=== PATIENT | male | born 1955 | race Caucasian/White ===

== ENCOUNTER 2020-09-23 08:38 | Outpatient (REF) | payer BC, SELFPAY ==
[2020-09-23 09:34] LABS: MANUAL DIFF FLAG NO
[2020-09-23 09:36] LABS: Basophils Absolute Auto 0.1 X10*3/uL (0.0-0.2); Basophils Percent Auto 0.9 % (0-2); Eosinophils Absolute Auto 0.3 X10*3/uL (0.0-0.4); Eosinophils Percent Auto 4.6 % (0-4); Hematocrit 46.1 % (42-52); Hemoglobin 15.4 g/dl (14.0-18.0); Imm Gran Abs Auto 0.01 X10*3/uL (0.00-0.03); Imm Gran Pct Auto 0.2 % (0.0-0.4); Lymphocytes Absolute Auto 1.5 X10*3/uL (1.2-4.9); Lymphocytes Percent Auto 26.1 % (20-40); Mean Corpuscular HGB Conc 33.4 g/dl (31.0-36.0); Mean Corpuscular Hemoglobin 29.8 pg (27.0-33.0); Mean Corpuscular Volume 89.3 fL (80-98); Mean Platelet Volume 10.4 fL (9.4-12.4); Monocytes Absolute Auto 0.5 X10*3/uL (0.1-1.2); Monocytes Percent Auto 7.9 % (2-11); Neutrophils Absolute Auto 3.5 X10*3/uL (2.0-8.3); Neutrophils Percent Auto 60.3 % (45-73); Platelet Count 279 X10*3/uL (160-400); Red Blood Count 5.16 X10*6/uL (4.60-5.80); Red Cell Distribution Width 11.9 % (11.0-16.0); White Blood Count 5.8 X10*3/uL (4.8-10.8)
[2020-09-23 09:55] LABS: Alanine Aminotransferase 19 U/L (0-40); Albumin Level 4.3 g/dL (3.5-5.0); Alkaline Phosphatase 53 U/L (39-117); Anion Gap 12 (12-20); Aspartate Amino Transferase 15 U/L (5-37); Bilirubin Total 0.8 mg/dL (0.0-1.0); Blood Urea Nitrogen 13 mg/dL (9-16); Calcium 8.9 mg/dL (8.4-10.2); Carbon Dioxide 30 mmol/L (22-29); Chloride 104 mmol/L (96-108); Cholesterol 192 mg/dL; Estimated Glomerular Filt Rate > 60; Glucose Random 95 mg/dL (60-115); HDL Cholesterol 58 mg/dL; LDL Cholesterol Calculated 113 mg/dl; Potassium 4.5 mmol/l (3.3-5.1); Sodium 141 mmol/L (135-145); Total Protein 6.5 g/dL (6.5-8.0); Triglycerides 108 mg/dL
[2020-09-23 10:16] LABS: Prostate Specific Antigen 0.52 ng/mL (<0.05-4.0); Thyroid Stimulating Hormone 0.98 uIU/mL (0.32-4.0)
[2020-09-23 10:32] LABS: Vitamin B12 877 pg/mL (200-900)
[2020-09-23 11:50] LABS: Glucose Urine UA NEG (NEG); Leukocyte Esterase Urine NEG (NEG); Nitrite Urine NEG (NEG); Urine Blood NEG (NEG); Urine Ketones 5 MG/DL (NEG); Urine Protein NEG (NEG-TRACE)
[2020-09-23 12:00] LABS: Appearance Urine CLEAR; Color Urine YELLOW
[2020-09-24 16:56] LABS: Homocysteine 10.8 umol/L (<11.4)
[2020-09-27 19:23] LABS: Methylmalonic Acid 142 nmol/L (87-318)
== END 2020-09-23 08:39 | disposition home or self-care (01) ==
LOC: HO.HMGCLDS 08:38
PROVIDERS: PCP Internal Medicine; Visit Provider Internal Medicine
DX: R41.3 Other amnesia (principal); I10 Essential (primary) hypertension; E78.00 Pure hypercholesterolemia, unspecified; Z12.5 Encounter for screening for malignant neoplasm of prostate
CPT/HCPCS: 36415; 80053; 80061; 81003; 82607; 83090; 83921; 84153; 84443; 85025

== ENCOUNTER 2022-01-14 17:40 | Emergency (ER) | payer MEDICARE, SELFPAY ==
--- NOTE | ~2022-01-14 | XR_ITS ---
EXAMINATION: RIGHT KNEE, RIGHT ELBOW CLINICAL INFORMATION: Status post fall with right knee and right elbow pain COMPARISON: None TECHNIQUE: 3 views right elbow, 5 views right knee FINDINGS: Elbow: No bone joint or soft tissue abnormality is seen. Knee: Some minimal degenerative changes are present with a tiny osteophyte arising from the medial tibial plateau and some posterior patellar osteophytes. No joint effusion. Joint spaces do not appear significantly narrowed. XR/XR knee RT 4V IMPRESSION: No evidence of a traumatic injury status post fall.
--- NOTE | ~2022-01-14 | XR_ITS ---
EXAMINATION: RIGHT KNEE, RIGHT ELBOW CLINICAL INFORMATION: Status post fall with right knee and right elbow pain COMPARISON: None TECHNIQUE: 3 views right elbow, 5 views right knee FINDINGS: Elbow: No bone joint or soft tissue abnormality is seen. Knee: Some minimal degenerative changes are present with a tiny osteophyte arising from the medial tibial plateau and some posterior patellar osteophytes. No joint effusion. Joint spaces do not appear significantly narrowed. XR/XR elbow RT min 3V IMPRESSION: No evidence of a traumatic injury status post fall.
--- NOTE | 2022-01-14 19:14 | ED.FALL ---
HPI - Fall General Chief Complaint: Fall Stated Complaint: fall/chin INJ Time Seen by Provider: 01/14/22 19:14 Source: patient Mode of arrival: ambulatory Limitations: no limitations History of Present Illness HPI Narrative: 66 y/o male with history of early dementia presents to the ER for evaluation after a mechanical fall earlier today. Patient reports when he was going on his daily walk he lost his balance and fell forward on the sidewalk, hitting his right elbow, right knee and chin on the cement. He did not lose consciousness any is not on anticoagulation medication. He reports biting his lower lip and having bleeding at the time of fall. No dental trauma. He was able to get up on his own and has been ambulatory with only some scrapes on his knees. MD complaint: fall Onset (ago): hour(s) Fall from: standing Fall witnessed: no Place fall occurred: street Loss of consciousness: none Prolonged down time: no Symptoms prior to fall: none Context: tripped/slipped Location of injury: face Location of injury - extremities: right: elbow and knee Severity: mild Severity scale (1-10): 3 Quality: aching Associated symptoms (after fall): denies Related Data Allergies Allergy/AdvReac Type Severity Reaction Status Date / Time codeine [Codeine] Allergy Mild PASSES OUT Unverified 06/13/20 16:03 Review of Systems Review of Systems: Constitutional: No Fever, No Chills ENT/Mouth: No sore throat, No Rhinorrhea, No Swallowing Difficulty, +Lip trauma, No dental trauma Cardiovascular: No Chest Pain, No SOB Respiratory: No Cough, No Sputum Gastrointestinal: No Nausea, No Vomiting, No abdominal Pain Musculoskeletal: + joint pain, No Myalgias Skin: + Skin Lesions, No rash Neuro: No Weakness, No Numbness, No Dizziness, No Headache Psych: No Anxiety/Panic, No Depression Heme/Lymph: + Bruising, No Lymphadenopathy PMFSH Social History Social History Advance Directives: No Physical Exam Vital Signs: Vital Signs: Last Vital Signs Temp 97.9 F 01/14/22 19:25 Pulse 88 01/14/22 19:25 Resp 17 01/14/22 19:25 BP 155/86 H 01/14/22 19:25 Pulse Ox 98 01/14/22 19:25 BMI result Body Mass Index 34.7 Appearance: Alert. Oriented X3. No acute distress. HEENT: head is normocephalic without swelling or tenderness, normal inspection of the face, inner lower lip with a 1cm linear laceration and ecchymosis of the lip, no active bleeding, no dental trauma or malocclusion. the chin has a superficial <0.5cm laceration that does not appear to connect with the internal lip laceration. normal inpsection of the tonsils and uvula. TMs normal, no blood in EAC, no mastoid tenderness. Neck: Normal inspection. Neck supple. No midline tenderness, normal range of motion. CVS: Normal heart rate and rhythm. Pulses normal. Respiratory: No respiratory distress. Breath sounds normal. Abdomen: Soft and nontender. +BS x4 no ecchymosis. Skin: Skin warm and dry. Normal skin color. Normal skin turgor. Extremities: Bilateral knees with superfical abrasions, normal ROM, normal patellas, no joint laxity. right elbow with mild swelling, minimal tenderness, normal active and passive ROM. no ecchymosis, erythema or crepitus. NV intact distally. Neuro: Oriented X 3. No motor deficit. No sensory deficit. Steady gait Course Course Course Narrative: 66 y/o male with history of early dementia presents to the ER after mechanical fall earlier today. He has superficial abrasions to the bilateral knees and some mild swelling of the right elbow. X-rays are ordered. His lip laceration does not appear to be a through and through and the inner lip wound is already closed, will plan to Dermabond the outer laceration in the event it is a through and through. Reevaluation(s) Reevaluation #1: X-rays are unremarkable. Local wound care to the knees performed. Wound of the chin was well approximated with Dermabond. Wound care discussed with patient and his at the bedside. Stable for discharge home. Tdap given. Procedures Laceration Laceration 1: Site: lip Size (cm): 0.5 Description: linear Depth: [id number] Pre-repair: wound explored and irrigated extensively Skin layer closed with: other (dermabond) Critical Care Time Critical Care Time Critical Care Time: No Discharge Plan Discharge Clinical Impression: Complicated laceration of lip, Abrasion of knee, Contusion of elbow Patient Disposition: Home, Self-Care Instructions: Fall Prevention for Older Adults (ED), Abrasion (ED) Additional Instructions: Your x-rays today were normal. Use bacitracin 2 times per day to the knee. Dermabond was used to close the small laceration on your chin - this will come off on its own, do not peel it off. After eating for the next 2 days rinse your mouth with water Avoid spicy and acidic foods, foods with seeds and sharp pieces until the laceration on the inside of your lip is completely healed Follow up with your doctor as needed If you develop new or worsening symptoms call 911 or come back to the ER for further evaluation. Interventions: ED Discharge Assessment Last Done: 01/14/22 20:28 Discharge Date/Time: 01/14/22 20:30
[2022-01-14 19:20] VITALS: BP 155/86; PULSE 88; RESP 17; TEMP 36.6; O2SAT 98; BMI 34.7
[2022-01-14 19:25] VITALS: BP 155/86; PULSE 88; RESP 17; TEMP 36.6; O2SAT 98
[2022-01-14] MEDS: Diphth,Pertus(ACell),Tet Adult 0.5 ML SYRINGE IM (20:02)
== END 2022-01-14 20:30 | disposition home or self-care (01) ==
PROVIDERS: Emergency Provider Emergency Medicine Emergency Medical Services; PCP Internal Medicine
DX: S01.511A Laceration without foreign body of lip, initial encounter (principal); S80.212A Abrasion, left knee, initial encounter; S80.211A Abrasion, right knee, initial encounter; S50.01XA Contusion of right elbow, initial encounter; F03.90 Unspecified dementia, unspecified severity, without behavioral disturbance, psychotic disturbance, mood disturbance, and anxiety; W01.0XXA Fall on same level from slipping, tripping and stumbling without subsequent striking against object, initial encounter; Y93.9 Activity, unspecified; Y92.410 Unspecified street and highway as the place of occurrence of the external cause; Y99.9 Unspecified external cause status
CPT/HCPCS: 12011; 73080; 73564; 90471; 90715; 99283; 99284

== ENCOUNTER 2022-03-18 08:01 | Day surgery (SDC) | payer MEDICARE, SELFPAY ==
--- NOTE | 2022-03-17 08:28 | HO.ANESPROP2 ---
Documented by User: Rosa Rojas NP 03/17/22 08:29 HPI - Anesthesia Eval Consult details Narrative: 66yo M for Colonoscopy [facility] Past Medical History Medical History Enlarged prostate HTN (hypertension) Hyperlipidemia Lumbar herniated disc Mild dementia Surgical History Surgical History Hx of colonoscopy No pertinent past surgical history Social History Social History Patient Tobacco Use Status: Never used Tobacco Advance Directives: No Advance Directives Information Provided: Yes Nutrition Risks: No Nutritional Risk Meds Allergies Allergy/AdvReac Type Severity Reaction Status Date / Time codeine [Codeine] Allergy Mild PASSES OUT Unverified 03/11/22 13:52 Home Medications Medication Instructions Recorded Confirmed Last Taken Type cyanocobalamin (vitamin B-12) 1,000 mcg PO DAILY 03/11/22 03/11/22 Unknown History 1,000 mcg tablet (Vitamin B-12) donepezil 10 mg tablet 1 tab PO DAILY 03/11/22 03/11/22 Unknown History lisinopril 10 mg tablet 1 tab PO DAILY 03/11/22 03/11/22 Unknown History memantine 10 mg tablet 1 tab PO BID 03/11/22 03/11/22 Unknown History omeprazole 20 mg capsule,delayed 20 mg PO DAILY 03/11/22 03/11/22 Unknown History release simvastatin 20 mg tablet 1 tab PO BEDTIME 03/11/22 03/11/22 Unknown History Exam Exam Date and Time: March 17, 2022 0828 Assessment and Plan Assessment Anesthesia Assessment: Chart Reviewed Documented by User: Katja Green MD 03/18/22 09:46 [facility] Past Medical History Medical History Enlarged prostate HTN (hypertension) Hyperlipidemia Lumbar herniated disc Mild dementia Functional capacity: independent ambulation Family History Family history of problems with anesthesia: No Surgical History Surgical History Hx of colonoscopy No pertinent past surgical history History of Problems with Anesthesia: No Social History Social History Patient Tobacco Use Status: Never used Tobacco Advance Directives: No Advance Directives Information Provided: Yes Nutrition Risks: No Nutritional Risk Meds Allergies Allergy/AdvReac Type Severity Reaction Status Date / Time codeine [Codeine] Allergy Mild PASSES OUT Unverified 03/11/22 13:52 Home Medications Medication Instructions Recorded Confirmed Last Taken Type cyanocobalamin (vitamin B-12) 1,000 mcg PO DAILY 03/11/22 03/11/22 Unknown History 1,000 mcg tablet (Vitamin B-12) donepezil 10 mg tablet 1 tab PO DAILY 03/11/22 03/11/22 Unknown History lisinopril 10 mg tablet 1 tab PO DAILY 03/11/22 03/11/22 Unknown History memantine 10 mg tablet 1 tab PO BID 03/11/22 03/11/22 Unknown History omeprazole 20 mg capsule,delayed 20 mg PO DAILY 03/11/22 03/11/22 Unknown History release simvastatin 20 mg tablet 1 tab PO BEDTIME 03/11/22 03/11/22 Unknown History Exam Airway Mallampati Class: II TM Dist: >3cm Neck ROM: Full Heart: RRR Lungs: CTA Assessment and Plan Final Anesthetic Review Family History of Problems with Anesthesia: No History of Problems with Anesthesia: No ASA Class: II Final Preanesthetic Review: No Changes in Pt Med Stat, Meds/Allgs Chart Reviewed, Consent Obtained/Reviewed and Anes Risks/Benef Reviewed Patient Risk: Low Procedure Risk: Low Anesthetic Plan Anesthetic Plan: MAC: Disposition: Standard PACU
[2022-03-18 08:14] VITALS: BP 157/93; PULSE 89; RESP 16; O2SAT 96; BMI 34.3
--- NOTE | 2022-03-18 10:13 | PM.OP ---
Brief Operative Note Date of Service: 03/18/22 Pre-op diagnosis: Screening Post-op diagnosis: other (Polyps) Procedure: Colonoscopy to the cecum and TI with bx/removal of polyps Surgeon: Molina Salamanca Anesthesia: MAC Was an Accounts Payable Bookkeeper used for this Procedure?: No Estimated blood loss (mL): 2.0 Pathology: other (A. Rectal polyps) Condition: stable Disposition: PACU
[2022-03-18 10:15] VITALS: BP 89/53; PULSE 75; RESP 16; TEMP 36.6; O2SAT 96
[2022-03-18 10:30] VITALS: BP 118/64; PULSE 81; RESP 18; TEMP 36.6; O2SAT 98
--- NOTE | 2022-03-18 11:36 | HO.POSTANES ---
Post Anesthesia Evaluation Post Anesthesia Evaluation Vital Signs: Vital Signs Temp Pulse Resp BP Pulse Ox O2 Del Method 03/18/22 10:30 97.9 F 81 18 118/64 98 Room Air 03/18/22 10:15 97.9 F 75 16 89/53 L 96 Room Air 03/18/22 08:14 89 16 157/93 H 96 Room Air Anesthesia: Monitored Mental Status: Awake Pain Control: Satisfactory Nausea/Vomiting: None Hydration: Adequate Anesthesia-Related Issues: No Anes. Related Issues
--- NOTE | 2022-03-18 13:58 | OP_ITS ---
SURGEON: Molina Salamanca MD INDICATIONS: The patient presents for evaluation of colorectal cancer screening and personal history of tubular adenoma of the colon. Full consent has been obtained from him for this, including risks of bleeding and perforation. PREOPERATIVE DIAGNOSIS: POSTOPERATIVE DIAGNOSIS: PROCEDURE PERFORMED: Colonoscopy to the cecum and terminal ileum with biopsy and removal of polyps. ESTIMATED BLOOD LOSS: COMPLICATIONS: ANESTHESIA: Monitored anesthesia care. ASSISTANTS: SPECIMENS: PREOPERATIVE DIAGNOSES: Colorectal cancer screening, personal history of tubular adenoma of the colon, and family history of colon cancer. POSTOPERATIVE DIAGNOSES: Colorectal cancer screening, personal history of tubular adenoma of the colon, and family history of colon cancer, small rectal polyps, diverticulosis and internal hemorrhoids. DESCRIPTION OF PROCEDURE: The patient was placed in the left lateral decubitus position. The digital rectal exam revealed no abnormalities. The Olympus video pediatric colonoscope was entered into the rectum and advanced easily to the cecum. Once in the cecum, I did identify normal-appearing cecal pouch with appendiceal orifice and a normal-appearing ileocecal valve. The terminal ileum was cannulated and appeared normal. Scope was withdrawn back in the colon. The entire cecum and ileocecal valve appeared normal. The scope was slowly withdrawn assessing all mucosal surfaces carefully. Preparation was excellent. There was a mild amount of sigmoid diverticulosis. In the rectum were 2 flat less than 5 mm probable hyperplastic polyps, which were each biopsied and removed completely with cold biopsy forceps. There were other similar polyps in the distal sigmoid colon, which were not removed given their appearance. In the rectum, scope was retroflexed visualizing internal hemorrhoids, but no other pathology. The rectal mucosa appeared normal. The scope was straightened and withdrawn from the patient. He tolerated the procedure well and was returned to the recovery area in stable condition. IMPRESSION: 1. Small rectal polyp, status post biopsy removal. 2. Diverticulosis. 3. Internal hemorrhoids. PLAN: The results of biopsies will be checked. I would recommend a repeat colonoscopy in 5 years for further screening. He will otherwise see me on a p.r.n. basis. This has been discussed with his . MD GUTIERREZ Hernandes/ANGELICA / [id number]
== END 2022-03-18 11:00 | disposition home or self-care (01) ==
PROVIDERS: PCP Internal Medicine; Visit Provider Internal Medicine
PROC: 0DJD8ZZ Inspection of Lower Intestinal Tract, Via Natural or Artificial Opening Endoscopic (ICD-10-PCS; CPT 45378; principal; 2022-03-18 09:30)
DX: Z12.11 Encounter for screening for malignant neoplasm of colon (principal); Z86.010 Personal history of colon polyps; Z80.0 Family history of malignant neoplasm of digestive organs; K62.1 Rectal polyp; K57.30 Diverticulosis of large intestine without perforation or abscess without bleeding; K64.8 Other hemorrhoids; N40.0 Benign prostatic hyperplasia without lower urinary tract symptoms; I10 Essential (primary) hypertension; E78.5 Hyperlipidemia, unspecified; F03.90 Unspecified dementia, unspecified severity, without behavioral disturbance, psychotic disturbance, mood disturbance, and anxiety; Z79.899 Other long term (current) drug therapy
CPT/HCPCS: 45380; 88305

== ENCOUNTER 2023-05-12 09:58 | Outpatient (REF) | payer MEDICARE, SELFPAY ==
[2023-05-12 13:51] LABS: Prostate Specific Antigen 1.29 ng/mL (<0.05-4.0)
== END 2023-05-12 09:59 | disposition home or self-care (01) ==
LOC: HO.HMGCLDS 09:58
PROVIDERS: PCP Internal Medicine; Visit Provider Urology
DX: N40.1 Benign prostatic hyperplasia with lower urinary tract symptoms (principal); Z12.5 Encounter for screening for malignant neoplasm of prostate
CPT/HCPCS: 36415; 84153

== ENCOUNTER 2023-08-03 18:39 | Outpatient (REF) | payer MEDICARE, SELFPAY ==
--- NOTE | ~2023-08-03 | MR_ITS ---
EXAMINATION: MR BRAIN WITHOUT CONTRAST CLINICAL INFORMATION: Ataxia, memory loss COMPARISON: MRI brain 10/06/2019 TECHNIQUE: MRI of the brain was obtained using routine sequences without contrast. FINDINGS: Again seen is severe dilatation of the lateral and third ventricles with milder distention of the fourth ventricle. Overall, this appears comparable to the prior examination of 2019. There is narrowing of the callosal angle and sulcal crowding at the cerebral vertex. There is no reduced diffusion to suggest acute infarct. Susceptibility weighted sequence is within normal limits. No midline shift. Periventricular and subcortical T2/FLAIR hyperintense foci are nonspecific but likely represent chronic microvascular ischemic change. T2/FLAIR hyperintense signal in the region of the cerebral aqueduct may be related to pulsation/flow. Intracranial flow voids are preserved. Trace ethmoid air cell mucosal thickening. The mastoid air cells are well-aerated. No focal expansile/destructive osseous lesion. MR/MR head/brain wo con IMPRESSION: Redemonstrated severe ventriculomegaly, most prominently involving the lateral and third ventricles, compatible with communicating hydrocephalus. Overall, no significant change compared to the prior examination of 2019.
== END 2023-08-03 18:40 | disposition home or self-care (01) ==
LOC: HO.MRI 18:39
PROVIDERS: PCP Internal Medicine; Visit Provider Psychiatry & Neurology Neurology
DX: R26.0 Ataxic gait (principal); R41.3 Other amnesia
CPT/HCPCS: 70551

== ENCOUNTER 2023-08-20 13:08 | Outpatient (REF) | payer MEDICARE, SELFPAY ==
[2023-08-20 15:47] LABS: Prostate Specific Antigen 0.61 ng/mL (<0.05-4.0)
== END 2023-08-20 13:09 | disposition home or self-care (01) ==
LOC: HO.HMGCLDS 13:08
PROVIDERS: PCP Internal Medicine; Visit Provider Physician Assistant
DX: Z12.5 Encounter for screening for malignant neoplasm of prostate (principal); N40.1 Benign prostatic hyperplasia with lower urinary tract symptoms
CPT/HCPCS: 36415; 84153

== ENCOUNTER 2023-10-19 11:23 | Outpatient (REF) | payer MEDICARE, SELFPAY ==
[2023-10-19 14:46] LABS: Blood Urea Nitrogen 12 mg/dL (9-16); Estimated Glomerular Filt Rate > 60
== END 2023-10-19 11:24 | disposition home or self-care (01) ==
LOC: HO.HMGCLDS 11:23
PROVIDERS: PCP Internal Medicine; Visit Provider Physician Assistant
DX: R31.29 Other microscopic hematuria (principal)
CPT/HCPCS: 36415; 82565; 84520

== ENCOUNTER 2023-12-22 09:52 | Outpatient (REF) | payer MEDICARE, SELFPAY ==
[2023-12-22 13:17] LABS: MANUAL DIFF FLAG NO
[2023-12-22 13:47] LABS: Basophils Percent Auto 0.7 % (0-2); Eosinophils Absolute Auto 0.1 X10*3/uL (0.0-0.4); Eosinophils Percent Auto 2.8 % (0-4); Hematocrit 43.1 % (42.0-52.0); Hemoglobin 14.6 g/dl (14.0-18.0); Imm Gran Abs Auto 0.02 X10*3/uL (0.00-0.03); Imm Gran Pct Auto 0.4 % (0.0-0.4); Lymphocytes Absolute Auto 1.3 X10*3/uL (1.2-4.9); Lymphocytes Percent Auto 27.5 % (20-40); Mean Corpuscular HGB Conc 33.9 g/dl (31.0-36.0); Mean Corpuscular Hemoglobin 29.3 pg (27.0-33.0); Mean Corpuscular Volume 86.4 fL (80.0-98.0); Mean Platelet Volume 10.8 fL (9.4-12.4); Monocytes Absolute Auto 0.4 X10*3/uL (0.1-1.2); Monocytes Percent Auto 8.9 % (2-11); Neutrophils Absolute Auto 2.7 x10*3/uL (2.0-8.3); Neutrophils Percent Auto 59.7 % (45-73); Platelet Count 221 X10*3/uL (160-400); Red Blood Count 4.99 X10*6/uL (4.60-5.80); Red Cell Distribution Width 12.3 % (11.0-16.0); White Blood Count 4.6 X10*3/uL (4.8-10.8)
[2023-12-22 14:01] LABS: Estimated Average Glucose 105 mg/dL; Hemoglobin A1c % 5.3 % (<6.0)
[2023-12-22 14:12] LABS: Alanine Aminotransferase 22 U/L (0-40); Alkaline Phosphatase 61 U/L (39-117); Anion Gap 12 (12-20); Aspartate Amino Transferase 18 U/L (5-37); Blood Urea Nitrogen 15 mg/dL (9-16); Calcium 9.3 mg/dL (8.4-10.2); Carbon Dioxide 27 mmol/L (22-29); Chloride 104 mmol/L (96-108); Cholesterol 174 mg/dL (<200); Estimated Glomerular Filt Rate > 60; Glucose Random 91 mg/dL (60-115); HDL Cholesterol 52 mg/dL (>40); LDL Cholesterol Calculated 105 mg/dL (<100); Potassium 3.9 mmol/L (3.3-5.1); Sodium 139 mmol/L (135-145); Total Protein 6.6 g/dL (6.5-8.0); Triglycerides 86 mg/dL (<150)
[2023-12-22 14:31] LABS: TSH reflex Free T4 0.85 uIU/mL (0.32-4.0); Vitamin D 25-OH Total 37.6 ng/mL (>30)
== END 2023-12-22 09:53 | disposition home or self-care (01) ==
LOC: HO.HMGCLDS 09:52
PROVIDERS: PCP Internal Medicine; Visit Provider Internal Medicine
DX: E78.00 Pure hypercholesterolemia, unspecified (principal); I10 Essential (primary) hypertension; R73.01 Impaired fasting glucose; E55.9 Vitamin D deficiency, unspecified
CPT/HCPCS: 36415; 80053; 80061; 82306; 83036; 84443; 85025

== ENCOUNTER 2024-05-10 08:32 | Outpatient (REF) | payer MEDICARE, SELFPAY ==
[2024-05-10 10:59] LABS: Alanine Aminotransferase 16 U/L (0-40); Alkaline Phosphatase 60 U/L (39-117); Anion Gap 12 (12-20); Aspartate Amino Transferase 15 U/L (5-37); Bilirubin Total 0.9 mg/dL (0.0-1.0); Blood Urea Nitrogen 11 mg/dL (9-16); Calcium 9.2 mg/dL (8.4-10.2); Carbon Dioxide 25 mmol/L (22-29); Chloride 104 mmol/L (96-108); Estimated Glomerular Filt Rate > 60; Glucose Random 98 mg/dL (60-115); Potassium 3.9 mmol/L (3.3-5.1); Sodium 137 mmol/L (135-145); Total Protein 6.4 g/dL (6.5-8.0)
[2024-05-10 11:00] LABS: Estimated Average Glucose 103 mg/dL; Hemoglobin A1c % 5.2 % (<6.0)
== END 2024-05-10 08:33 | disposition home or self-care (01) ==
LOC: HO.HMGCLDS 08:32
PROVIDERS: PCP Internal Medicine; Visit Provider Internal Medicine
DX: I10 Essential (primary) hypertension (principal); R73.01 Impaired fasting glucose
CPT/HCPCS: 36415; 80053; 83036

== ENCOUNTER 2024-05-15 09:12 | Day surgery (SDC) | payer MEDICARE, SELFPAY ==
[2024-05-11 13:51] VITALS: BMI 31.6
--- NOTE | 2024-05-12 09:08 | HO.ANESPROP2 ---
Documented by User: Rosa Rojas NP 05/12/24 09:08 HPI - Anesthesia Eval Consult details Narrative: 69yo M for Upper Endoscopy with Balloon Dilitation PMFSH Past Medical History Medical History GERD (gastroesophageal reflux disease) Sleep apnea Mild dementia Lumbar herniated disc Enlarged prostate Hyperlipidemia HTN (hypertension) Family History Family history of problems with anesthesia: No Surgical History Surgical History Hx of colonoscopy History of Problems with Anesthesia: No Social History Social History Patient Tobacco Use Status: Never used Tobacco Advance Directives: No Advance Directives Information Provided: Yes Meds Allergies Allergy/AdvReac Type Severity Reaction Status Date / Time codeine [Codeine] Allergy Mild PASSES OUT Verified 05/15/24 10:03 Home Medications ?Medication ?Instructions ?Recorded ?Confirmed ?Last Taken ?Type cyanocobalamin (vitamin B-12) 1,000 mcg PO DAILY 03/11/22 05/15/24 05/14/24 History 1,000 mcg tablet (Vitamin B-12) donepezil 10 mg tablet 1 tab PO DAILY 03/11/22 05/15/24 05/14/24 History lisinopril 10 mg tablet 1 tab PO DAILY 03/11/22 05/15/24 05/14/24 History memantine 10 mg tablet 1 tab PO BID 03/11/22 05/15/24 05/14/24 History omeprazole 20 mg capsule,delayed 20 mg PO DAILY 03/11/22 05/15/24 05/14/24 History release simvastatin 20 mg tablet 1 tab PO BEDTIME 03/11/22 05/15/24 05/14/24 History Probiotic 1 tab PO DAILY 05/11/24 05/15/24 05/14/24 History tamsulosin 0.4 mg capsule 0.8 mg PO DAILY 05/11/24 05/15/24 05/14/24 History vibegron 75 mg tablet (Gemtesa) 75 mg PO DAILY 05/11/24 05/15/24 05/14/24 History Exam Height,Weight and Vital Signs: Height 5 ft 7.5 in Weight 92.986 kg Assessment and Plan Assessment Anesthesia Assessment: Chart Reviewed Final Anesthetic Review Family History of Problems with Anesthesia: No History of Problems with Anesthesia: No Documented by User: Matthieu Grene MD 05/15/24 10:21 [facility] Past Medical History Medical History GERD (gastroesophageal reflux disease) Sleep apnea Mild dementia Lumbar herniated disc Enlarged prostate Hyperlipidemia HTN (hypertension) Surgical History Surgical History Hx of colonoscopy Social History Social History Patient Tobacco Use Status: Never used Tobacco Advance Directives: No Advance Directives Information Provided: Yes Meds Allergies Allergy/AdvReac Type Severity Reaction Status Date / Time codeine [Codeine] Allergy Mild PASSES OUT Verified 05/15/24 10:03 Home Medications ?Medication ?Instructions ?Recorded ?Confirmed ?Last Taken ?Type cyanocobalamin (vitamin B-12) 1,000 mcg PO DAILY 03/11/22 05/15/24 05/14/24 History 1,000 mcg tablet (Vitamin B-12) donepezil 10 mg tablet 1 tab PO DAILY 03/11/22 05/15/24 05/14/24 History lisinopril 10 mg tablet 1 tab PO DAILY 03/11/22 05/15/24 05/14/24 History memantine 10 mg tablet 1 tab PO BID 03/11/22 05/15/24 05/14/24 History omeprazole 20 mg capsule,delayed 20 mg PO DAILY 03/11/22 05/15/24 05/14/24 History release simvastatin 20 mg tablet 1 tab PO BEDTIME 03/11/22 05/15/24 05/14/24 History Probiotic 1 tab PO DAILY 05/11/24 05/15/24 05/14/24 History tamsulosin 0.4 mg capsule 0.8 mg PO DAILY 08/05/15/24 05/14/24 History vibegron 75 mg tablet (Gemtesa) 75 mg PO DAILY 05/11/24 05/15/24 05/14/24 History Exam Airway Mallampati Class: III TM Dist: >3cm Neck ROM: Full Assessment and Plan Assessment Anesthesia Assessment: Anesthesia Plan Discussed Final Anesthetic Review NPO: Yes ASA Class: III Final Preanesthetic Review: No Changes in Pt Med Stat, Meds/Allgs Chart Reviewed, Consent Obtained/Reviewed and Anes Risks/Benef Reviewed Patient Risk: Intermediate Procedure Risk: Low Anesthetic Plan Anesthetic Plan: TIVA Disposition: Standard PACU
[2024-05-15 10:30] VITALS: BP 149/83; PULSE 66; RESP 16; TEMP 36.5; O2SAT 96; BMI 30.6
[2024-05-15] MEDS: Lactated Ringers 1,000 ML 100 ML IVCONT (10:46)
[2024-05-15 11:26] VITALS: BP 138/86; PULSE 88; RESP 16; TEMP 36.8; O2SAT 96
--- NOTE | 2024-05-15 11:26 | PM.OP ---
Brief Operative Note Date of Service: 05/15/24 Pre-op diagnosis: Dysphagia Post-op diagnosis: other (GERD, Hiatal hernia) Procedure: EGD with Balloon Dilation with a 19mm to 20mmBalloon, and biopsies Surgeon: Molina Salamanca MD Anesthesia: MAC Was an Tai Chi Instructor used for this Procedure?: No Estimated blood loss (mL): 2.0 Pathology: other (A. EG Junction at 35cm) Condition: stable Disposition: PACU
[2024-05-15 11:41] VITALS: BP 144/85; PULSE 67; RESP 16; TEMP 36.6; O2SAT 96
--- NOTE | 2024-05-15 11:54 | OP_ITS ---
DATE OF SERVICE: 05/15/2024 SURGEON: Molina Salamanca MD INDICATIONS: The patient presents for evaluation of intermittent dysphagia and history of reflux. Full consent has been obtained from him for this, including risks of bleeding and perforation. PREOPERATIVE DIAGNOSIS: POSTOPERATIVE DIAGNOSIS: PROCEDURE PERFORMED: Esophagogastroduodenoscopy with balloon dilation of gastroesophageal junction and biopsies. ESTIMATED BLOOD LOSS: COMPLICATIONS: ANESTHESIA: Monitored anesthesia care. ASSISTANTS: SPECIMENS: PREOPERATIVE DIAGNOSES: Gastroesophageal reflux and dysphagia. POSTOPERATIVE DIAGNOSES: Gastroesophageal reflux, dysphagia, and hiatal hernia. DESCRIPTION OF PROCEDURE: The patient was placed in the left lateral decubitus position. The Olympus video gastroscope was passed in the posterior oropharynx and upper esophagus under direct vision. The scope was passed slowly into the distal esophagus. The gastroesophageal junction appeared at 35 cm. There was some very minimal irregularity, but no evidence of any esophagitis, definitive Chavez mucosa, nor mass. There was no evidence of any definitive stricture nor ring. The scope easily entered the stomach. There was a moderate-sized hiatal hernia. The hiatal hernia mucosa appeared normal. The scope was advanced to the pylorus and the duodenum was cannulated to the descending portion. The duodenum including the bulb appeared normal without mass or ulceration. The scope was withdrawn back to the stomach. The gastric antrum and body appeared normal with good peristalsis. The scope was retroflexed, visualizing the proximal stomach carefully, which appeared normal, without any sign of mass or ulceration. The scope was straightened and withdrawn back to the esophagus. Again, the gastroesophageal junction appeared patent. I did use a [employer] incremental balloon to dilate the gastroesophageal junction from 19 mm to 20 mm at the recommended pressure for between 30 and 60 seconds each. There was no obvious heme noted post dilation. The balloon itself pulled easily into and out of the stomach. I did obtain biopsies at the EG junction at 35 cm. Proximal to this, the esophageal mucosa appeared normal. The scope was withdrawn from the patient. He tolerated the procedure well and was returned to the recovery area in stable condition. IMPRESSION: 1. Moderate-sized hiatal hernia. 2. Gastroesophageal reflux. PLAN: The results of the biopsy will be checked. At this point, he reports that he only has dysphagia occasionally when eating rice. He does not have any other problems with eating or drinking. I did advise him to continue his daily omeprazole. As long as things are stable, he will see me on a p.r.n. basis. If he has any worsening dysphagia, then we may need to proceed with further workup including esophageal motility studies. He will see me in 2026 for his next colonoscopy. This has been discussed with his . MD GUTIERREZ Hernandes/ANGELICA / [id number]
== END 2024-05-15 12:35 | disposition home or self-care (01) ==
PROVIDERS: PCP Internal Medicine; Visit Provider Internal Medicine
PROC: (CPT 43249; principal; 2024-05-15 10:30)
DX: K21.9 Gastro-esophageal reflux disease without esophagitis (principal); R13.10 Dysphagia, unspecified; K44.9 Diaphragmatic hernia without obstruction or gangrene; I10 Essential (primary) hypertension; Z79.899 Other long term (current) drug therapy
CPT/HCPCS: 43249; 43239; 88305; C1726; J1596; J2704

== ENCOUNTER 2024-10-03 11:51 | Outpatient (REF) | payer MEDICARE, SELFPAY ==
--- OUTSIDE RECORDS SUMMARY | 2024-10-03 13:44 | XMS_ITS ---
Author Organization [facility] Address [address] [place] [address] Care Team Providers Care Assistant Professor Of Anthropology Name Role Phone Ashkan Peñaloza MD Primary Care Provider Molina Bryant [phone] REASON FOR VISIT gerd,dyaphagia/balloon dialation PROBLEMS Problem Type ICD Code Onset Dates Problem Status W/U Status Risk SNOMED Code Notes Problem Gastroesophageal reflux disease without esophagitis (K21.9) Active confirmed Gastroesophagea l reflux disease without esophagitis (595650304) Encounters Encounter Location Date Provider Diagnosis [facility] Outpatient [address] [place] [id number] 05/15/2024 Molina Salamanca Other specified dise ase of esophagus K22.89 ; Gastroesophageal reflux disease without esophagitis K21.9 ; Hiatal hernia K44.9 and Dysphagia R13.10 ASSESSMENTS Encounter Date Diagnosis Assessment Notes Treatment Notes Treatment Clinical Notes 05/15/2024 Other specified dise ase of esophagus (ICD-10 - K22.89) 05/15/2024 Gastroesophageal ref lux disease without esophagitis (ICD-10 - K21.9) 05/15/2024 Hiatal hernia (ICD-1 0 - K44.9) 05/15/2024 Dysphagia (ICD-10 - R13.10) PLAN OF TREATMENT No Information
--- OUTSIDE RECORDS SUMMARY | 2024-10-03 13:45 | XMS_ITS ---
Author Organization [facility] Address [address] [place] [address] Care Team Providers Care Flaker Tender Name Role Phone Ashkan Peñaloza MD Primary Care Provider Molina Bryant [phone] ALLERGIES Allergen (clinical drug ingredient) Drug/Non Drug Allergy documented on EMR Reaction Allergy Type Onset Date Status Codeine Phosphate Unknown Drug Allergy Active REASON FOR VISIT Patient presents today for GERD MEDICATIONS Medication SIG (Take, Route, Frequency, Duration) Notes Start Date End Date Status Vitamin B-12 1000 MCG 1 tablet Orally On ce a day for 30 day(s) Active Donezepil HCl-10 mg 10 mg one tablet orally q day for 30 days Active Omeprazole 20 MG 1 capsule 30 minutes before morning meal Orally Once a day for 30 day(s) Active Memantine HCl 10 MG 1 tablet Orally Twic e a day for 30 day(s) Active Simvastatin 20 MG 1 tablet in the evening Orally Once a day Active Tamsulosin HCl 0.4 MG 1 capsule Orally O nce a day for 30 day(s) two pills at night. Active Probiotic - as directed Orally Active Gemtesa 75 MG 1 tablet Orally Once a day for 30 day(s) Active Lisinopril 10 MG 1 tablet Orally Once a day Active SOCIAL HISTORY Sex Assigned At : Social History Observation Description Sex Assigned At Unknown Alcohol Screen Question Answer Notes Did you have a drink contain ing alcohol in the past year? Yes How often did you have a dri nk containing alcohol in the past year? 4 or more times a week (4 points) How many drinks did you have on a typical day when you were drinking in the past year? 1 or 2 drinks (0 point) How often did you have 6 or more drinks on one occasion in the past year? Never (0 point) Points 4 Interpretation Positive PROBLEMS Problem Type ICD Code Onset Dates Problem Status W/U Status Risk SNOMED Code Notes Problem Dysphagia (R13.10) Active confirmed Dysphagia (90669512) Problem Chronic GERD (K21.9) Active confirmed Gastroesophagea l reflux disease (disorder) (118823626) VITAL SIGNS BMI 31.65 kg/m2 02/22/2024 Blood pressure systolic 000 mm Hg 02/22/20 24 Blood pressure diastolic 00 mm Hg 024 Height 67.5 in 02/22/2024 Temperature 97.3 degrees Fahrenheit 02/22/20 Weight 205 lb 2 oz lbs 02/22/2024 Encounters Encounter Location Date Provider Diagnosis [facility] [address] [place] [address] 02/22/2024 Molina Salamanca Dysphagia R13.10 and Chronic GERD K21.9 ASSESSMENTS Encounter Date Diagnosis Assessment Notes Treatment Notes Treatment Clinical Notes 02/22/2024 Dysphagia (ICD-10 - R13.10) 02/22/2024 Chronic GERD (ICD-10 - K21.9) 02/22/2024 Other Repeat colonosc opy in 2026 PLAN OF TREATMENT Treatment Notes Assessment Notes Other Repeat colonoscopy i n 2026 Future Test Test Name Order Date UPPER GI ENDOSCOPY BALL[place]ON DILATION OF ESOPH 02/22/2024 Next Appt Details Follow Up: prn, Reason: Progress Notes * Examination Category Sub-Category Detail Notes General Examination GENERAL APPEARANCE: pleasant , well nourished, well developed, in no acute distress HEAD: EYES: sclera non-icteric EARS: NOSE: THROAT: NECK/THYROID: no cervical lymphade nopathy, neck supple HEART: S1, S2 normal CHEST: LUNGS: clear to auscultatio n bilaterally ABDOMEN: normal bowel sounds, no guarding or rigidity, no guarding or rigidity, no masses palpable, soft, nontender, nondistended NEUROLOGIC: alert and oriented SKIN: nonjaundiced, no spi riley angiomata EXTREMITIES: no edema PERIPHERAL PULSES: BACK: BREASTS: MUSCULOSKELETAL: MALE GENITOURINARY: LYMPH NODES: RECTAL EXAM: FEMALE GENITOURINARY: ORAL CAVITY: mucosa moist
--- OUTSIDE RECORDS SUMMARY | 2024-10-03 13:45 | XMS_ITS | Patient Health Record ---
Author Organization [facility] Address [address] [place] [address] Care Team Providers Care Compliance Associate Name Role Phone Ashkan Peñaloza MD Primary Care Provider Molina Bryant [phone] ALLERGIES Allergen (clinical drug ingredient) Drug/Non Drug Allergy documented on EMR Reaction Allergy Type Onset Date Status Codeine Phosphate Unknown Drug Allergy Active RESULTS Component Value Reference Range Notes Pathology (Not yet reviewed by provider) Interpretation: Performing Lab:[facility], [address] [place] [id number] Notes/Report: REASON FOR REFERRAL No Information MEDICATIONS Medication SIG (Take, Route, Frequency, Duration) Notes Start Date End Date Status Tamsulosin HCl 0.4 MG 1 capsule Orally O nce a day for 30 day(s) two pills at night. Active Probiotic - as directed Orally Active Gemtesa 75 MG 1 tablet Orally Once a day for 30 day(s) Active Vitamin B-12 1000 MCG 1 tablet Orally On ce a day for 30 day(s) Active Donezepil HCl-10 mg 10 mg one tablet orally q day for 30 days Active Omeprazole 20 MG 1 capsule 30 minutes before morning meal Orally Once a day for 30 day(s) Active Memantine HCl 10 MG 1 tablet Orally Twic e a day for 30 day(s) Active Lisinopril 10 MG 1 tablet Orally Once a day Active Simvastatin 20 MG 1 tablet in the evening Orally Once a day Active IMMUNIZATIONS Vaccine Route Administration Date Status Comme nts Influenza Unknown 07/08/2021 Administered Influenza Unknown 08/17/2023 Administered SOCIAL HISTORY Sex Assigned At : Social [...] W/U Status Risk SNOMED Code Notes Problem History of adenomatous polyp of colon (Z86.010) Active confirmed [id number] Problem Encounter for screening for malignant neoplasm of colon (Z12.11) Active confirmed 090996326 Problem Encounter for screening for malignant neoplasm of rectum (Z12.12) Active confirmed Screening for malignant neoplasm of rectum (897648344) Problem Preprocedural examination (Z01.818) Active confirmed 23344137 Problem Family history of colon cancer (Z80.0) Active confirmed Family history of malignant neoplasm of gastrointestinal tract (356528760) Problem Diverticulosis of colon (K57.30) Active confirmed Diverticulosi s of colon (921638909) Problem Dysphagia (R13.10) Active confirmed Dys phagia (92166269) Problem Chronic GERD (K21.9) Active confirmed Gastroesophagea l reflux disease (disorder) (419367997) Problem Gastroesophageal reflux disease without esophagitis (K21.9) Active confirmed Gastroesophagea l reflux disease without esophagitis (250771327) VITAL SIGNS Temperature 97.3 degrees Fahrenheit 02/22/2024 Blood pressure diastolic 00 mm Hg 02/22/2024 Height 67.5 in 02/22/2024 Blood pressure systolic 000 mm Hg 02/22/2024 Weight 205 lb 2 oz lbs 02/22/2024 BMI 31.65 kg/m2 02/22/2024 Encounters Encounter Location Date Provider Diagnosis [facility] [place] [address] [place], [place] [phone] 05/15/2024 Molina Salamanca Other specified dise ase of esophagus K22.89 ; Gastroesophageal reflux disease without esophagitis K21.9 ; Hiatal hernia K44.9 and Dysphagia R13.10 [facility] [address] [place] [address] 02/22/2024 Molina Salamanca Dysphagia R13.10 and Chronic GERD K21.9 ASSESSMENTS Encounter Date Diagnosis Assessment Notes Treatment Notes Treatment Clinical Notes 05/15/2024 Gastroesophageal reflux disease without esophagitis (ICD-10 - K21.9) 05/15/2024 Other specified disease of esophagus (ICD-10 - K22.89) 02/22/2024 Dysphagia (ICD-10 - R13.10) 02/22/2024 Chronic GERD (ICD-10 - K21.9) 05/15/2024 Hiatal hernia (ICD-1 0 - K44.9) 05/15/2024 Dysphagia (ICD-10 - R13.10) 02/22/2024 Other Repeat colonoscopy in 2026 PLAN OF TREATMENT Pending Test Test Name Order Date Pathology 05/15/2024 Future Test Test Name Order Date COLONOSCOPY 07/14/2016 COLONOSCOPY 02/18/2022 UPPER GI ENDOSCOPY [place] DILATION OF ESOPH 02/22/2024 Insurance Providers Payer Name Payer Address Payer Phone Subscriber Number Group Number Insured Name Patient Relationship to Insured Coverage Start Date Coverage End Date MEDICARE OF [place] [address] [place] [address] [id number] [place] Self - patient is the insured [employer] ATT[employer] CLAIMS [address] [place] [address] [id number] [place] Self - patient is the insured MEDICAL (GENERAL) HISTORY Medical History History ICD Code Tubular adenomas removed in 2007; colonoscopy 04-17-2011 neg. except for hyperplastic polyps and diverticulosis Denies UT,DM,CVA,Lung disease,renal dise ase Hypertension Hyperlipidemia Enlarged prostate Herniated disc 12/2015--resolved with med ications Colonoscopy 10/2016 hyperplastic polyps Early dementia, but competent to sign fo r himself as of the 01/2022 OV Sleep apnea CPAP machine Neg. colonoscopy in 02/2022 except for hy perplastic polyps Surgical History Surgery Date(Month/Year)
[2024-10-03 14:15] LABS: Prostate Specific Antigen 1.14 ng/mL (<0.05-4.0)
== END 2024-10-03 11:52 | disposition home or self-care (01) ==
LOC: HO.HMGCLDS 11:51
PROVIDERS: PCP Internal Medicine; Visit Provider Urology
DX: N40.1 Benign prostatic hyperplasia with lower urinary tract symptoms (principal); Z12.5 Encounter for screening for malignant neoplasm of prostate
CPT/HCPCS: 36415; 84153

== ENCOUNTER 2025-07-26 13:48 | Outpatient (AMB) | payer MEDICARE, SELFPAY ==
--- OUTSIDE RECORDS SUMMARY | 2024-05-15 06:30 | XMS_ITS ---
Author Organization [facility] Address [address] [place] [address] Care Team Providers Care Section Beamer Name Role Phone Ashkan Peñaloza MD Primary Care Provider Molina Bryant [phone] REASON FOR VISIT gerd,dyaphagia/balloon dialation Problems Problem Type SNOMED Code ICD Code Onset Dates Problem Status W/U Status Risk Notes Problem Gastroesophageal reflux disease without esophagitis (902106591) Gastroesophageal reflux disease without esophagitis (K21.9) Active confirmed Encounters Encounter Location Date Provider Diagnosis [facility] [place] [facility] [address] [place] [phone] 05/15/2024 Molina Salamanca Other specified dise ase of esophagus K22.89 ; Gastroesophageal reflux disease without esophagitis K21.9 ; Hiatal hernia K44.9 and Dysphagia R13.10 Assessments Encounter Date Diagnosis (ICD Code) Assessment Notes Treatment Notes Treatment Clinical Notes Section Notes 05/15/2024 Other specified disease of esophagus (ICD-10 - K22.89) 05/15/2024 Gastroesophageal reflux disease without esophagitis (ICD-10 - K21.9) 05/15/2024 Hiatal hernia (ICD-10 - K44.9) 05/15/2024 Dysphagia (ICD-10 - R13.10) Plan Of Treatment No Information Progress Notes * [place] COSBY GDOB: [birth year] (70 yo M)Acc No.[id number]:05/15/2024 EGD/MAC Patient: N[facility]ia [place] Provider: Robin Salamanca MD :[id number] A ge:69 Y S ex:Male Date:05/15/2024 [address] [id number] Pcp:Ashkan Peñaloza MD Subjective: * Chief Complaints: * 1 . Gerd,dyaphagia/balloon dialation. * Medical History: Objective: * Vitals: Assessment: * Assessment: 1. O ther specified disease of esophagus - K22.89 (Primary) 2 . G astroesophageal reflux disease without esophagitis - K21.9 3 . H iatal hernia - K44.9? 4. D ysphagia - R13.10 Plan: * Treatment: * Procedure Codes: 4 3249 ESOPH ENDOSCOPY, DILATION, 88155 UPPER GI ENDOSCOPY, BIOPSY, Modifiers: 59 * * The named appointment provid er may or may not be the originator of this progress note, and it is not deemed complete until electronically signed by the appointment provider. Sign off status: Pending * Provider: Robin Salamanca MD Date: 0 05/15/2024 Generated for Ric vega/Prasad/eTransmitting on: 1 04:47 PM EDT
--- NOTE | 2025-07-26 13:44 | A.OFFPC_ITS ---
Vital Signs 07/26/25 13:57 07/26/25 16:51 Height 5 ft 4.17 in Weight 199 lb BMI 34.0 BP 167/87 H 138/66 Blood Pressure Location Rt brachial Position Sitting Respiration 14 Pulse 80 75 Pulse Source Pulse Oximeter Temp 97.8 F Temp Source Temporal Artery Scan Pulse Oximetry (%) 97 Oxygen Delivery Method Room Air Intake Visit Reasons: Establish care; dementia Classification Clerk Required: No Accompanied by: Spouse Allergies codeine (Codeine) Allergy (Mild, Verified 07/26/25 14:19) PASSES OUT Medication List - Last Reconciled 07/26/25 by Christiane Anderson PA-C cyanocobalamin (vitamin B-12) (Vitamin B-12) 1,000 mcg PO DAILY donepezil 1 tab PO DAILY lisinopril 1 tab PO DAILY memantine 1 tab PO BID omeprazole 20 mg PO DAILY [Probiotic 1 tab PO DAILY] simvastatin 1 tab PO BEDTIME tamsulosin 0.8 mg PO DAILY Tobacco use date assessed: 07/26/25 Fall risk assessment: 1 Fall in past year Last assessed Fall Risk: 07/26/25 Dental Screening Dental Screen Date: 07/26/25 Did you have a dental visit in the last 12 months?: Yes Did you have a dental problem in the last 6 months where you did not have access to dental care?: No Was dental information given to patient?: Patient has dentist HPI Establish care; dementia HPI Details The patient is a 70-year-old male presenting for a new patient appointment to establish care. He has a history of dementia and is managed by neurologist Dr. Ling in [place]. For this condition, he takes donepezil once daily and memantine twice daily. The patient's medication regimen includes lisinopril 10 mg daily, omeprazole 20 mg daily, simvastatin 20 mg at bedtime, tamsulosin 0.4 mg at bedtime, vitamin B12 daily, and a probiotic. The patient's last blood work was in November or December of 2023, which revealed a high sodium level, for which he was advised to decrease fluid intake. The patient has a history of obstructive sleep apnea and uses a CPAP machine. He undergoes colonoscopies every five years due to a family history of colon cancer in his brother; his last procedure was in February of [address] Peterson. He sees a urologist every six months, where his PSA levels are monitored. There is no family history of prostate cancer. The patient has a history of falls, which are described as mechanical in nature and not associated with dizziness. He owns a walking stick but is reportedly reluctant to use it. The patient was a compliance project manager and has a remote history of smoking a few cigarettes in high school. Social History - Tobacco Use: Patient denies a signific ant smoking history, reporting he smoked about 10 cigarettes in high school. - Occupation: He is a former compliance project manager . - Functional Status: Patient has had rec ent falls described as mechanical. - He has a walking stick but does not us e it regularly. [facility] Medical History (Updated 07/26/25 @ 16:57 by Christiane Anderson PA-C) Hypernatremia Gait abnormality Dementia Healthcare maintenance Depression GERD (gastroesophageal reflux disease) Sleep apnea Mild dementia Lumbar herniated disc Enlarged prostate Hyperlipidemia HTN (hypertension) Surgical History (Updated 07/26/25 @ 16:58 by Christiane Anderson PA-C) Hx of colonoscopy (~02/2022) Family History Father BP (high blood pressure) Mother No problems noted. Social History Housing: House Alcohol intake: current Alcohol intake frequency: 0-2 drinks per day Alcohol type: beer Patient Tobacco Use Status: Never used Tobacco service: No Current occupational status: retired Cognitive needs: Yes (memory loss/uses cane) Hearing needs: No Vision needs: Yes (rx glasses) Questionnaire PHQ-9 Over the last 2 weeks, how often have you been bothered by any of the following problems? 1. Little interest or pleasure in doing things: not at all 2. Feeling down, depressed, or hopeless: not at all 3. Trouble falling or staying asleep, or sleeping too much: not at all 4. Feeling tired or having little energy: not at all 5. Poor appetite or overeating: not at all 6. Feeling bad about yourself - or that you are a failure or have let yourself or your family down: not at all 7. Trouble concentrating on things, such as reading the newspaper or watching television: not at all 8. Moving or speaking so slowly that other people could have noticed. Or the opposite - being so fidgety or restless that you have been moving around a lot more than usual: not at all 9. Thoughts that you would be better off or of hurting yourself in some way: not at all Total score: 0 Depression Screening Interpretation: Negative Depression Screening Done: Yes 78840 - PHQ-9 Billing: Yes Source: Developed by Drs. Molina Villasenor, Kiana Farmer, Cheko Charlton and colleagues, with an educational diamond from [email or web address]. Thrive Questionnaire Date Thrive assessed: 07/26/25 I am a: Patient What is your living situation today?: I have a steady place to live Within the past 12 months, did the food you bought not last and you didn't have the money to get more?: Never true Within the past 12 months, did you worry whether your food would run out before you got money to buy more?: Never true Do you have trouble paying for medicines?: No Do you have trouble getting transportation to medical appointments?: No Do you have trouble paying your heating and electricity bill?: No Do you have trouble taking care of your child, family member or friend?: No Do you have trouble with day-to-day activities such as bathing, preparing meals, shopping, managing finances, etc.?: No Are you currently unemployed and looking for a job?: No Are you interested in more education?: No Please select the resources that you would like help with: None THRIVE Score: 0 AUDIT C Alcohol Use Questionnaire (AUDIT-C) 1. How often do you have a drink containing alcohol?: 4 or more times a week 2. How many drinks containing alcohol do you have on a typical day when you are drinking?: 1 or 2 3. How often do you have six or more drinks on one occasion?: Never Total Score: 4 Score Reviewed/Action Taken: No CORA-7 AMB Questionnaire CORA-7 Date CORA - 7 assessed: 07/26/25 Feeling nervous, anxious, or on edge: 0 = Not at all Not being able to stop or control worryin = Not at all Worrying too much about different things: 0 = Not at all Trouble relaxin = Not at all Being so restless that it is hard to sit still: 0 = Not at all Becoming easily annoyed or irritable: 0 = Not at all Feeling afraid as if something awful might happen: 0 = Not at all Total CORA-7 score (0-4 normal; 5-9 mild; 10-14 moderate; 15-21 severe): 0 Source: Developed by Drs. Molina Villasenor, Kiana Farmer, Cheko Charlton and colleagues, with an educational diamond from [email or web address]. CORA-7 Assessment Billing CORA-7 Assessment Tool: CORA-7 Assessment 75972 Review of Systems Const Details: - Constitutional: Denies unintentional weight loss. - HEENT: Denies hearing trouble, though his suggests otherwise. - He confirms his vision is checked regularly. - Cardiovascular: Denies chest pain. - Respiratory: Denies shortness of breath, cough, or hemoptysis. - Gastrointestinal: Denies abdominal pain. - Genitourinary: Denies flank pain. - Musculoskeletal: Denies leg swelling. - Denies pain in his back upon palpation. - Neurological: Reports a history of falls, described as mechanical rather than from dizziness. - Denies dizziness. - Psychiatric: The patient denies feeling depressed, though his expresses concern about his mood and decreased activity. Physical exam (Primary Care) Vital Signs: Last Vital Signs Temp 97.8 F 07/26/25 13:57 Pulse 80 07/26/25 13:57 Resp 14 07/26/25 13:57 BP 167/87 H 07/26/25 13:57 Pulse Ox 97 07/26/25 13:57 Oxygen Delivery Method Room Air 07/26/25 13:57 Care Plan Goal for BP management: <140/90 at Goal BMI result Body Mass Index 34.0 Tobacco/Smoking Status: Tobacco use Status Tobacco use date assessed 07/26/25 07/26/25 13:46 Patient Tobacco Use Status Never used Tobacco 07/26/25 14:07 PHQ-9: PHQ-9 Score PHQ-9: Total score 0 07/26/25 14:20 Depression Screening Interpretation: Negative Thrive Assessment: Date of Thrive Assessment Date Thrive assessed 07/26/25 07/26/25 13:46 Const Other: Appearance: Alert. Oriented to self at baseline per . No acute distress. Head: Normal external exam. Normocephalic. Atraumatic. Eyes: Pupils are equal, round, and reactive to light. Extraocular movements intact. Conjunctiva and sclera normal. Eyelids normal. Ears: External auditory canal normal. Tympanic membranes normal. Throat: Pharynx normal. Uvula midline. Moist mucous membranes. Neck: Normal inspection. Neck supple. Full range of motion. No adenopathy. Thyroid Normal. No meningeal signs. No neck mass noted. Cardiovascular: Normal heart rate and rhythm. Heart sound normal. No murmurs noted. Pulses normal throughout. Blood pressure improved to 138/66 from 167/87. Pulse is 75. Respiratory: No respiratory distress. Painless inspiration. Breath sounds normal. No wheezes/rales/rhonchi noted. Chest nontender. No accessory muscle usage noted or decreased air movement noted. Abdomen: Soft and nontender. No distention noted. No organomegaly noted. Back: No costovertebral angle tenderness. Full range of motion noted. Skin: Skin warm and dry. Normal skin color. Normal skin turgor. No rashes/lesions/lacerations noted. Extremities: No lower extremity edema. Extremities exhibit normal range of motion. Neuro: Oriented to self at baseline per . No motor deficit. No sensory deficit. Reflexes normal. Limited mobility noted, uses a walking stick. Results Reviewed Results Reviewed: - Labs: Blood work from 01/09/24 showed a high sodium level. Coding Level of Care Code New Pt Level 4 (09099) Complex EM visit Add On G2211 Diagnoses Healthcare maintenance Z00.00 Dementia F03.90 HTN (hypertension) I10 Depression F32.A Gait abnormality R26.9 Hypernatremia E87.0 Additional Codes CORA-7 Assessment Billing - CORA-7 Assessment Tool: CORA-7 Assessment 98430 ([id number]) PHQ-9 - 35355 - PHQ-9 Billing: Yes ([id number]) Time Spent (min) 60 Assessment & Plan Assessment & Plan (1) Healthcare maintenance: Code(s): Z00.00 - Encounter for general adult medical examination without abnormal findings Category: Medical Plan: The patient is establishing care as a new patient. Comprehensive fasting labs will be ordered, including a lipid panel, thyroid panel, urinalysis, vitamin B12, vitamin D, magnesium, liver enzymes, hemoglobin A1c, complete blood count, comprehensive metabolic panel to recheck electrolytes and kidney function, and inflammatory markers. A prescription for lisinopril was sent to the pharmacy to establish the practice as his primary care provider. A follow-up visit is scheduled for six months. (2) Dementia: Code(s): F03.90 - Unspecified dementia, unspecified severity, without behavioral disturbance, psychotic disturbance, mood disturbance, and anxiety Category: Medical Plan: The patient has a history of dementia, for which he takes donepezil and memantine. He is under the care of a neurologist, Dr. Guerra. Current medications will be continued, and medical records from his neurologist will be requested. (3) HTN (hypertension): Code(s): I10 - Essential (primary) hypertension Category: Medical Plan: The patient is on lisinopril for hypertension. His initial blood pressure was elevated at 167/87 mmHg but improved to 138/66 mmHg after resting. He will continue his current dose of lisinopril, and a refill was sent to his pharmacy. (4) Depression: Code(s): F32.A - Depression, unspecified Category: Medical Plan: The patient's expressed concern about depression, noting changes in his mood and activity levels. After discussion about the nature of a psychiatric co nsultation, the patient agreed to a referral for a one-time outpatient psychiatric evaluation to assess his mood and provide recommendations for management. It was emphasized that this consultation is for expert opinion and does not obligate him to ongoing treatment or medication. (5) Gait abnormality: Code(s): R26.9 - Unspecified abnormalities of gait and mobility Category: Medical Plan: The patient has a history of mechanical falls and uses a walking stick. Paperwork for a handicapped placard will be completed for him due to limited mobility. (6) Hypernatremia: Code(s): E87.0 - Hyperosmolality and hypernatremia Category: Medical Plan: The patient had a high sodium level on lab work from December 2023. His sodium will be rechecked as part of the comprehensive metabolic panel. Plan Plan Patient was informed and verbally consented to the use of an ambient scribe for clinic note documentation during this visit. 1. Establishment Of Care / Health Maintenance The patient is establishing care as a new patient. Comprehensive fasting labs will be ordered, including a lipid panel, thyroid panel, urinalysis, vitamin B12, vitamin D, magnesium, liver enzymes, hemoglobin A1c, complete blood count, comprehensive metabolic panel to recheck electrolytes and kidney function, and inflammatory markers. A prescription for lisinopril was sent to the pharmacy to establish the practice as his primary care provider. A follow-up visit is scheduled for six months. 2. Dementia The patient has a history of dementia, for which he takes donepezil and memantine. He is under the care of a neurologist, Dr. Guerra. Current medi cations will be continued, and medical records from his neurologist will be requested. 3. Essential Hypertension The patient is on lisinopril for hypertension. His initial blood pressure was elevated at 167/87 mmHg but improved to 138/66 mmHg after resting. He will continue his current dose of lisinopril, and a refill was sent to his pharmacy. 4. Possible Depression The patient's expressed concern about depression, noting changes in his mood and activity levels. After discussion about the nature of a psychiatric consultation, the patient agreed to a referral for a one-time outpatient psychiatric evaluation to assess his mood and provide recommendations for management. It was emphasized that this consultation is for expert opinion and does not obligate him to ongoing treatment or medication. 5. Limited Mobility And Gait Abnormality The patient has a history of mechanical falls and uses a walking stick. Paperwork for a handicapped placard will be completed for him due to limited mobility. 6. Hypernatremia The patient had a high sodium level on lab work from December 2023. His sodium will be rechecked as part of the comprehensive metabolic panel. I informed the patient and his that this practice uses an AI listening device to help generate clinical notes. We discussed the plan to obtain comprehensive fasting lab work to establish a baseline, including rechecking his sodium level, which was previously elevated. I addressed the 's concerns about possible depression, explaining that it can manifest as a loss of interest in usual activities, especially when dealing with chronic health changes. I recommended a one-time outpatient psychiatry consultation for an expert opinion on management, emphasizing that this would be a single visit for recommendations and that he is not obligated to pursue further treatment or medication. The patient and his agreed to the referral. We discussed completing an application for a handicapped placard due to his limited mobility. I confirmed that no medication refills were needed at this time, but I would send one prescription for lisinopril to ensure the pharmacy is linked to our practice. We agreed on a follow-up appointment in six months unless issues arise sooner. Orders: Orders Magnesium Today Z00.00 - Encounter for general adult medical examination without abnormal findings Complete Blood Count Auto Diff Today Z00.00 - Encounter for general adult medical examination without abnormal findings Liver Panel Today Z00.00 - Encounter for general adult medical examination without abnormal findings Vitamin B12 and Folate Today Z00.00 - Encounter for general adult medical examination without abnormal findings UA CC w/rflx Micro + Cult Today Z00.00 - Encounter for general adult medical examination without abnormal findings Erythrocyte Sedimentation Rate Today Z00.00 - Encounter for general adult medical examination without abnormal findings C Reactive Protein Today Z00.00 - Encounter for general adult medical examination without abnormal findings Hemoglobin A1c Today Z00.00 - Encounter for general adult medical examination without abnormal findings Lipid Panel Today Z00.00 - Encounter for general adult medical examination without abnormal findings Vitamin D 25-OH Total Today Z00.00 - Encounter for general adult medical examination without abnormal findings Comprehensive [place]. Panel Fast Today Z00.00 - Encounter for general adult medical examination without abnormal findings TSH reflex Free T4 Today Z00.00 - Encounter for general adult medical examination without abnormal findings Referrals Psychiatry Outpatient Consultation Service F32.A - Depression, unspecified Medications: Changed From lisinopril 1 tab PO DAILY To lisinopril 10 mg PO DAILY 90 tabs 3RF Patient Instructions: - Please go to the lab for fasting blood work. - You should not eat or drink for 8-10 hours beforehand, but you may have water or black coffee with no cream or sugar. - The order is already in the computer system for you. - Continue taking all of your current medications as prescribed. - A refill for your lisinopril has been sent to the pharmacy. - You will receive a call from the psychiatry department to schedule a one-time consultation to discuss your mood and provide recommendations. - Please complete your portion of the handicapped ianard application form. - Plan to follow up in the office in about 6 months, but please call if you need anything sooner.
[2025-07-26 13:57] VITALS: BP 167/87; PULSE 80; RESP 14; TEMP 36.6; O2SAT 97; BMI 34.0
--- OUTSIDE RECORDS SUMMARY | 2025-07-26 16:47 | XMS_ITS | Patient Health Record ---
Author Organization [facility] Address [address] [place] [address] Care Team Providers Care Shoulder Boner Name Role Phone Ashkan Peñaloza MD Primary Care Provider Molina Bryant [phone] Allergies Allergen (clinical drug ingredient) Drug/Non Drug Allergy documented on EMR Reaction Allergy Type Onset Date Status Codeine Phosphate Unknown Drug Allergy Active Reason For Referral No Information Medications Medication SIG (Take, Route, Frequency, Duration) Notes Start Date End Date Status Tamsulosin HCl 0.4 MG 1 capsule Orally O nce a day; Duration: 30 day(s) two pills at night. Active Probiotic - as directed Orally Active Gemtesa 75 MG 1 tablet Orally Once a day; Duration: 30 day(s) Active Vitamin B-12 1000 MCG 1 tablet Orally On ce a day; Duration: 30 day(s) Active Donezepil HCl-10 mg 10 mg one tablet orally q day; Duration: 30 days Active Omeprazole 20 MG 1 capsule 30 minutes before morning meal Orally Once a day; Duration: 30 day(s) Active Memantine HCl 10 MG 1 tablet Orally Twic e a day; Duration: 30 day(s) Active Lisinopril 10 MG 1 tablet Orally Once a day Active Simvastatin 20 MG 1 tablet in the evening Orally Once a day Active Immunizations Vaccine Route Administration Date Status Comme nts Influenza Unknown 07/08/2021 Administered Influenza Unknown 08/17/2023 Administered Social History Alcohol Screen Question Answer Notes Did you [...] Never (0 point) Points 4 Interpretation Positive Section Notes: Nonsmoker; occasional beer Nonsmoker; occasional beer Nonsmoker; occasional beer Problems Problem Type SNOMED Code ICD Code Onset Dates Problem Status W/U Status Risk Notes Problem Screening for malignant neoplasm of colon (641134173) Encounter for screening for malignant neoplasm of colon (Z12.11) Active confirmed Problem History of adenomatous polyp of colon (942452494) History of adenomatous polyp of colon (Z86.010) Active confirmed Problem Screening for malignant neoplasm of rectum (597151125) Encounter for screening for malignant neoplasm of rectum (Z12.12) Active confirmed Problem Dysphagia (55842195) Dysphagia (R13.10) Active confirmed Problem Gastroesophageal reflux disease without esophagitis (931504496) Gastroesophageal reflux disease without esophagitis (K21.9) Active confirmed Problem Preprocedural examination (269355304746436) Preprocedural examination (Z01.818) Active confirmed Problem Family History of Cancer of Colon (Situation) (241555495) Family history of colon cancer (Z80.0) Active confirmed Problem Diverticulosis of colon (553188571) Diverticulosis of colon (K57.30) Active confirmed Problem Gastroesophageal reflux disease (disorder) (464901143) Chronic GERD (K21.9) Active confirmed Plan Of Treatment Pending Test Test Name Order Date Pathology 05/15/2024 Future Test Test Name Order Date COLONOSCOPY 07/14/2016 COLONOSCOPY 02/18/2022 UPPER GI ENDOSCOPY [place] DILATION OF ESOPH 02/22/2024 Insurance Providers Payer Name Payer Address Payer Phone Subscriber Number Group Number Insured Name Patient Relationship to Insured Coverage Start Date Coverage End Date MEDICARE OF [place] [address] [place] [id number] [phone] [id number] [place] COSBY Self - patient is the insured [employer] ATTN CLAIMS [address] [place] [phone] [id number] JUAN MIGUELMONTANA MARVIN Self - patient is the insured Medical (General) History Medical History History ICD Code Tubular adenomas removed in 2007; colonoscopy 04-17-2011 neg. except for hyperplastic polyps and diverticulosis Denies SC,DM,CVA,Lung disease,renal dise ase Hypertension Hyperlipidemia Enlarged prostate Herniated disc 12/2015--resolved with med ications Colonoscopy 10/2016 hyperplastic polyps Early dementia, but competent to sign fo r himself as of the 01/2022 OV Sleep apnea CPAP machine Neg. colonoscopy in 02/2022 except for hy perplastic polyps Surgical History Surgery Date(Month/Year)
--- OUTSIDE RECORDS SUMMARY | 2025-07-26 16:48 | XMS_ITS | Encounter Summary ---
Author Organization [facility] Address [address] [place] [address] [place] [address] Phone Care Team Providers Care Ice Skating Coach Name Role Phone Ashkan Peñaloza MD Primary Care Provider [phone] Ferdinand Guerra MD Unavailable [phone] Ashkan Peñaloza MD Unavailable [phone] Ashkan Peñaloza MD Unavailable [phone] Encounter Details Date Type Department Care Team (Late st Contact Info) Description 03/30/2021 Procedure Pass [facility], Ct Scan - [address] [address] Social History Tobacco Use Types Packs/Day Years Used Date Smoking Tobacco: Never Smokeless Tobacco: Never Alcohol Use Standard Drinks/Week Comments Yes 4 (1 standard drink = 0.6 oz pur e alcohol) Sex and Gender Information Value Date Recorded Sex Assigned at Male 01/11/2021 3:55 PM EDT Legal Sex Male 11:06 AM EDT Gender Identity Male 01/11/2021 3:55 PM EDT Sexual Orientation Not on file documented as of this encounter Functional Status * Calculated C-SSRS Risk Score (Lifetime/Recent) Answer Date of Assessment Author No Risk Indicated 03/30/2021 3:15 PM EDT Regina Barrios RN * Dickens Suicide Severity Rating Scale (Screener/Recent Self-Report) Question Answer Date of Assessment Author 1. Wish to be (Past 1 Month) No 021 3:15 PM EDT Regina Barrios, DEREK 2. Non-Specific Active Suici zaheer Thoughts (Past 1 Month) No 03/30/2021 3:15 PM EDT Regina Barrios , DEREK 6. Suicidal Behavior (Lifetime) No 3:15 PM EDT Regina Barrios RN documented as of this encounter Plan of Treatment Upcoming Encounters Date Type Department Care Team (Late st Contact Info) Description 08/27/2025 11:40 AM EST Office Visit [facility] [address] [facility] 3rd Floor, [address] [place] [address] Molina Rubio MD, [place] [address] [facility], [address] [address] [email or web address] documented as of this encounter Visit Diagnoses Not on filedocumented in this encounter Additional Health Concerns Assessment Noted Time PHQ-2 Depression Total Score: 0 10/14/19 21 3:13 PM EST documented as of this encounter Care Teams Ice Skating Coach Relationship Specialty Start Date End Date Ashkan Peñaloza MD [address] [place] [id number] PCP - General Internal Medicine 05/08/19 Ferdinand Guerra MD [address] [place] [address], [address] [place] [address] Neurology 10/30/19 Ashkan Peñaloza MD [address] [place] [address] Insurance Assigned Provider 01/31/20 07/05/21 Ashkan Peñaloza MD [address] [place] [address] Insurance Assigned Provider 01/01/24 documented as of this encounter Additional Source Comments The information contained in this document represents components of the legal health record. It is not the complete legal health record.[facility]
--- OUTSIDE RECORDS SUMMARY | 2025-07-26 16:48 | XMS_ITS | Encounter Summary ---
Author Organization [facility] Address [address] [facility] [address] [place] [address] Phone Care Team Providers Care Shingle Packer Name Role Phone Ashkan Peñaloza MD Primary Care Provider [phone] Ferdinand Guerra MD Unavailable [phone] Ashkan Peñaloza MD Unavailable [phone] Ashkan Peñaloza MD Unavailable [phone] Encounter Details Date Type Department Care Team (Late st Contact Info) Description 10/14/2020 Procedure Pass [facility] [place] [address] Social History Tobacco Use Types Packs/Day Years [...] on file documented as of this encounter Plan of Treatment Upcoming Encounters Date Type Department Care Team (Late st Contact Info) Description 08/27/2025 11:40 AM EST Office Visit [facility] [address] [place] [address] 3rd Floor, [address] [place], [place] [phone] Molina Rubio MD, MS 22 [facility], [address] [place] [address] documented as of this encounter Visit Diagnoses Not on filedocumented in this encounter Additional Health Concerns Assessment Noted Time PHQ-2 Depression Total Score: 0 10/14/19 21 3:13 PM EST documented as of this encounter Care Teams Shingle Packer Relationship Specialty Start Date End Date Ashkan Peñaloza MD [address] [place] [address] PCP - General Internal Medicine 05/08/19 Ferdinand Guerra MD [address] [place] [address], [address] [place] [address] Neurology 10/30/19 Ashkan Peñaloza MD [address] [place] [address] Insurance Assigned Provider 01/31/20 07/05/21 Ashkan Peñaloza MD [address] [place] [address] Insurance Assigned Provider 01/01/24 documented as of this encounter Additional Source Comments The information contained in this document represents components of the legal health record. It is not the complete legal health record.[facility]
--- OUTSIDE RECORDS SUMMARY | 2025-07-26 16:48 | XMS_ITS | Encounter Summary ---
Author Organization [facility] Address [address] [facility] [address] [place] [address] Phone Care Team Providers Care Carpet Inspector Name Role Phone Ashkan Peñaloza MD Primary Care Provider [phone] Ferdinand Guerra MD Unavailable Ashkan Peñaloza MD Unavailable [phone] Encounter Details Date Type Department Care Team (Late st Contact Info) Description 05/05/2022 Procedure Pass [facility] [address] [place] [address] Social History Tobacco Use Types Packs/Day Years Used Date Smoking Tobacco: Never Smokeless Tobacco: Never Alcohol Use Standard Drinks/Week Comments Yes 4 (1 standard drink = 0.6 oz pur e alcohol) per week Sex and Gender Information Value Date Recorded Sex Assigned at Male 01/11/2021 3:55 PM EDT Legal Sex Male 11:06 AM EDT Gender Identity Male 01/11/2021 3:55 PM EDT Sexual Orientation Not on file documented as of this encounter Plan of Treatment Upcoming Encounters Date Type Department Care Team (Late st Contact Info) Description 08/27/2025 11:40 AM EST Office Visit [facility] [address] [place] [address] 3rd Floor, [address] [place], [place] [phone] Molina Rubio MD, MS 22 [facility], [address] [address] documented as of this encounter Visit Diagnoses Not on filedocumented in this encounter Additional Health Concerns Assessment Noted Time PHQ-2 Depression Total Score: 0 10/23/19 22 1:26 PM EST documented as of this encounter Care Teams Carpet Inspector Relationship Specialty Start Date End Date Ashkan Peñaloza MD [address] [place] [address] PCP - General Internal Medicine 05/08/19 Ferdinand Guerra MD [address] [place] [address], [address] [place] [address] Neurology 10/30/19 Ashkan Peñaloza MD [address] [place] [address] Insurance Assigned Provider 01/01/24 documented as of this encounter Additional Source Comments The information contained in this document represents components of the legal health record. It is not the complete legal health record.[facility]
--- OUTSIDE RECORDS SUMMARY | 2025-07-26 16:48 | XMS_ITS | Encounter Summary ---
Author Organization [facility] Address [address] [facility] [address] [place] [address] Phone Care Team Providers Care Continuous Dryout Operator Name Role Phone Ashkan Peñaloza MD Primary Care Provider [phone] Ferdinand Guerra MD Unavailable [phone] Ashkan Peñaloza MD Unavailable [phone] Ashkan Peñaloza MD Unavailable [phone] Encounter Details Date Type Department Care Team (Late st Contact Info) Description 04/03/2021 Procedure Pass Non-Invasive Cardiology [address] [place] [address] Social History Tobacco Use Types Packs/Day Years [...] Description 08/27/2025 11:40 AM EST Office Visit [facility] [address] Floor, [address] [place], [place] [id number] Molina Rubio MD, MS [address] [facility], [address] [place] [address] documented as of this encounter Visit Diagnoses Not on filedocumented in this encounter Additional Health Concerns Assessment Noted Time PHQ-2 Depression Total Score: 0 10/14/19 21 3:13 PM EST documented as of this encounter Care Teams Continuous Dryout Operator Relationship Specialty Start Date End Date Ashkan Peñaloza MD [address] [place] [address] PCP - General Internal Medicine 05/08/19 Ferdinand Guerra MD [address] [place] [address], [address] [place] [address] Neurology 10/30/19 Ashkan Peñaloza MD [address] [place] [address] Insurance Assigned Provider 01/31/20 07/05/21 Ashkan Peñaloza MD [address] [place] [address] Insurance Assigned Provider 01/01/24 documented as of this encounter Additional Source Comments The information contained in this document represents components of the legal health record. It is not the complete legal health record.[facility]
--- OUTSIDE RECORDS SUMMARY | 2025-07-26 16:48 | XMS_ITS | Encounter Summary ---
Author Organization [facility] Address [address] [facility] [address] [place] [address] Phone Care Team Providers Care Piano Instructor Name Role Phone Ashkan Peñaloza MD Primary Care Provider [phone] Ferdinand Guerra MD Unavailable [phone] Ashkan Peñaloza MD Unavailable [phone] Ashkan Peñaloza MD Unavailable [phone] Reason for Referral * Consultation (Elective) - Closed Specialty Diagnoses / Procedures Referred By Marc alcantara Referred To Contact Neurology Diagnoses Dystonia Ashkan Peñaloza MD Phone: tel: fax: [email or web address] Referral ID Status Reason Start Date Expiration Date Visits Re quested Visits Authorized [id number] Closed 06/27/2020 06/27/2021 99 [phone] Encounter Details Date Type Department Care Team (Latest Contact Info) Description 05/29/2020 Transcribe [place] [facility] [place] [address] [facility], 8th Floor, [address] [place] [address] Ashkan Peñaloza MD [address] [place] [address] [email or web address] Dystonia (Primary Dx) Social History Tobacco Use Types Packs/Day Years [...] Description 08/27/2025 11:40 AM EST Office Visit [facility] [address] [place] [address] 3rd Floor, [address] [place] [address] Molina Rubio MD, MS [address] [facility], [address] [place] [address] [email or web address] Scheduled Referrals Name Type Priority Associated Diagnoses Order Schedule [place] [facility] [place] [place] Outpatient Referral Routine Dystonia Ordered: 05/29/2020 documented as of this encounter Visit Diagnoses Diagnosis Dystonia- Primary Abnormal involuntary movements documented in this encounter Additional Health Concerns Assessment Noted Time PHQ-2 Depression Total Score: 0 09/26/20 11:38 AM EST documented as of this encounter Care Teams Piano Instructor Relationship Specialty Start Date End Date Ashkan Peñaloza MD [address] [place] [address] [email or web address] PCP - General Internal Medicine 05/08/19 Ferdinand Guerra MD [address] [place] [address], [address] [place] [address] [email or web address] Neurology 10/30/19 Ashkan Peñaloza MD [address] [place] [address] [email or web address] Insurance Assigned Provider 01/31/20 07/05/21 Ashkan Peñaloza MD [address] [place] [address] [email or web address] Insurance Assigned Provider 01/01/24 documented as of this encounter Additional Source Comments The information contained in this document represents components of the legal health record. It is not the complete legal health record.[facility]
--- OUTSIDE RECORDS SUMMARY | 2025-07-26 16:48 | XMS_ITS | Clinical Summary ---
Author Organization [facility] Address [address] [place] [address] Care Team Providers Care Chiropractic Physician Name Role Phone Mimi Arthur APRN Primary Care Provider [phone] Allergies Active Allergy Reactions Criticality Noted Date Comments Codeine Other (See Comments) Medium 04/26/2018 Medications Medication Sig Dispensed Refills Start Date End Date Status simvastatin (ZOCOR) tablet 20 mg 0 04/14/2018 Active lisinopril (PRINIVIL,ZESTRIL) tablet 5 mg TAKE ONE TABLET BY MOUTH EVERY DAY 90 tablet 2 05/07/2019 Active Active Problems Problem Noted Date Diagnosed Date Essential hypertension 04/26/2018 Hypercholesterolemia 04/26/2018 Family History Medical History Relation Name Comments Cancer Brother Heart disease Brother Stroke Brother Heart attack Father Heart disease Father Relation Name Status Comments Brother Alive Father Mother Social History Tobacco Use Types Packs/Day Years Used Date Smoking Tobacco: Never Smokeless Tobacco: Never Alcohol Use Standard Drinks/Week Comments Yes 1 (1 standard drink = 0.6 oz pur e alcohol) daily Sex and Gender Information Value Date Recorded Sex Assigned at Not on file Gender Identity Not on file Sexual Orientation Not on file Last Filed Vital Signs Vital Sign Reading Time Taken Comments Blood Pressure 146/90 07/17/2019 9:47 AM EDT Pulse 70 07/17/2019 9:47 AM EDT Temperature 36.6 C (97.8 F) 07/17/2019 9:47 AM EDT Respiratory Rate 16 07/17/2019 9:47 AM EDT Oxygen Saturation 97% 07/17/2019 9:47 AM EDT Inhaled Oxygen Concentration - - Weight 85.4 kg (188 lb 4.8 oz) 07/17/2019 9:47 A M EDT Height 171.5 cm (5' 7.5 ) 07/17/2019 9:47 AM EDT Body Mass Index 29.06 07/17/2019 9:47 AM EDT Plan of Treatment Health Maintenance Due Date Last Done Comments Hepatitis C Screening 1955 COVID-19 Vaccine (#1) 1956 Depression Screening 1968 Preventative Health Evaluation 1974 DTap / Tdap / Td (1 - Tdap) 1975 Colon Cancer Screening (Colonoscopy) 2001 Shingrix-Zoster Vaccine (1 of 2) 2006 BMI Counseling 07/17/2020 07/17/2019 Fall Risk Assessment 2021 Pneumococcal Vaccine (1 of 1 - PCV) 2021 Influenza Vaccine (#1) 2025 RSV Adult > 60+ Yrs or Pregn ant (1 - 1-dose 75+ series) 2031 Hepatitis B Vaccines Aged Out No long er eligible based on patient's age to complete this topic RSV Ped < 20 months Aged Out No longe r eligible based on patient's age to complete this topic Care Teams Chiropractic Physician Relationship Specialty Start Date End Date Mimi Arthur APRN [address] [place] [address] PCP - General Family Medicine 04/26/18
--- OUTSIDE RECORDS SUMMARY | 2025-07-26 16:48 | XMS_ITS | Clinical Summary ---
Author Organization [facility] Address [address] [place] [id number] Phone Care Team Providers Care Forge Helper Name Role Phone Ashkan Peñaloza MD Primary Care Provider [phone] Ferdinand Guerra MD Unavailable Ashkan Peñaloza MD Unavailable [phone] Allergies Active Allergy Reactions Criticality Noted Date Comments Codeine Medium 04/26/2018 weakness Medications donepeziL (ARICEPT) 10 MG tablet Take 1 tablet by mouth once a day. 021 Active cyanocobalamin, vitamin B-12, 1000 MCG tablet Take 1,000 mcg by mouth daily. Active memantine (NAMENDA) 10 MG tablet Take 10 mg by mouth 2 (two) times a day. 021 Active tamsulosin (FLOMAX) 0.4 mg Cap Take 0.4 mg by mouth nightly at bedtime. Active simvastatin (ZOCOR) 20 MG tabletIndications:Pure hypercholesterolemia TAKE 1 TABLET BY MOUTH DAILY 90 tablet 3 024 Active Medication-Free Text nightly at bedtime. CPAP 021 Active omeprazole (PRILOSEC) 20 MG capsuleIndications:Mercedes roesophageal reflux disease, unspecified whether esophagitis present TAKE 1 CAPSULE BY MOUTH DAILY - ON FOR 14 DAYS, OFF FOR 14 DAYS, THEN REPEAT 90 capsule 3 025 Active lisinopril (PRINIVIL,ZESTRIL) 10 MG tabletIndications:Benig n essential hypertension TAKE ONE TABLET BY MOUTH EVERY DAY 90 tablet 3 025 Active lisinopril (PRINIVIL,ZESTRIL) 10 MG tabletIndications:Maddie العلي essential hypertension take one tablet by mouth once daily 90 tablet 3 024 2024 Discontinued Active Problems Problem Noted Date Diagnosed Date Dementia without behavioral disturbance 10/15/19 21 Assessment & Plan (02/25/2021 10:55 AM EDT): He said that this is a recent diagnosis hopefully will not be too progressive Abnormality of gait 06/28/2020 Benign essential hypertension 09/26/2019 Assessment & Plan (02/25/2021 10:55 AM EDT): Well-controlled at this time on Zestril 10 mg daily Pure hypercholesterolemia 09/26/2019 Assessment & Plan (02/25/2021 10:55 AM EDT): To me he does not need a medication change just to lose 25 pounds and increase exercise his numbers will fall if this happens. Goal for him technically is less than 100 LDL but I would like to see him down toward 70 Esophageal reflux 09/26/2019 Gastroesophageal reflux disease Overview (06/22/2024): 05/15/24 Dr. Salamanca did EGD with dilatation and bx has hiatal hernia as well cont daily PPI, r/t prn next colonoscopy due 2026 Resolved Problems Problem Noted Date Diagnosed Date Resolved Date Aortic ectasia, thoracic 12/22/202005/2024 Overview (12/22/2020): Seen on echo Encounters Date Type Department Care Team Description 07/14/2025 Refill [facility] Internal Medicine [address] [facility] [place] [address] Ashkan Peñaloza MD Medication Refill 07/05/2025 Refill [facility] Internal Medicine [address] [place] [address] Ashkan Peñaloza MD Medication Refill from Last 3 Months Immunizations Immunization Administration Dates Next Due COVID-19 (Pre-10/23) Pfizer Vaccine, mRNA, PF 02/05/2021,01/15/2021 INFLUENZA, SPLIT VIRUS, TRIV ALENT W/ PRESERVATIVE IM 07/08/2021 Influenza High-Dose Quadriva lent Preservative Free IM 08/10/2023,07/29/2021 Influenza Quadrivalent Prese rvative Free IM 07/02/2020,08/08/2019,09/06/2018,08/10 Influenza Quadrivalent w/ Pr eservative IM 08/08/2019 Influenza, Unspecified Formulation 07/08/2022 Pneumococcal conjugate PCV20 10/26/2022 Pneumococcal polysaccharide PPSV23 10/23/2021 Tdap 01/14/2022 Zoster recombinant 03/25/2023,10/02/2022 Family History Medical History Relation Comments Colon cancer Brother Heart disease Brother Stroke Brother Heart disease Father Cancer Sister Esophageal cancer Sister Gout Sister Heart disease Sister Kidney failure Sister Osteoporosis Sister Relation Status Comments Brother Father Sister (Age 63) esophageal can cer dx at age 62 Social History Tobacco Use Types Packs/Day Years Used Date Smoking Tobacco: Never Smokeless Tobacco: Never Tobacco Cessation:Counseling Given: Not Answered Alcohol Use Standard Drinks/Week Comments Yes 9 (1 standard drink = 0.6 oz pur e alcohol) Child or Family Care Answer Date Record ed Do you have problems with on e of the following making it difficult for you to work, study, or receive health care? No 05/04/2024 Education Answer Date Recorded Are you interested in more education? Not on renard e 01/22/2023 Are you concerned about learning? Not on file 01/22/2023 No 01/22/2023 No 01/22/2023 Food Answer Date Recorded Within the past 6 months we worried whether our food would run out before we got money to buy more. Never True 05/04/2024 Within the past 6 months the food we bought just didn't last and we didn't have enough money to get more. Never True Residential Stability Answer Date Recor ded What is your housing situation today? I have nellie sing 05/04/2024 How many times have you move d in the past 12 months? Zero (I did not move) 05/04/2024 Paying for Meds Answer Date Recorded Do you have trouble paying for medicines? No 05/04/2024 Paying Utility Bills Answer Date Record ed Do you have trouble paying your heating or elect ricity bill? No 05/04/2024 Transportation Answer Date Recorded Has the lack of transportati on kept you from medical appointments or from getting medications? No 05/04/2024 Digital Access Answer Date Recorded No 05/04/2024 Yes 05/04/2024 Do you have reliable internet access at home? Ye s 05/04/2024 Do you have a device (e.g., phone, tablet, computer) with a working camera? Yes 05/04/2024 Intimate Partner Violence Answer Date R ecorded Denied Basic Needs Not on file 05/05/2024 In the past 12 months have y ou been in a relationship with a person who hurts, threatens, or tries to control you? No 05/05/2024 Worried food would run out Not on file 05/05 In the past 12 months have y ou been in a relationship with a person who hurts, threatens, or tries to control you? No 05/05/2024 Sex and Gender Information Value Date Recorded Sex Assigned at Male 01/11/2021 3:55 PM EDT Legal Sex Male 11:06 AM EDT Gender Identity Male 01/11/2021 3:55 PM EDT Sexual Orientation Not on file Last Filed Vital Signs Vital Sign Reading Time Taken Comments Blood Pressure 136/73 01/04/2025 2:39 PM EDT Pulse 83 01/04/2025 2:39 PM EDT Temperature 36.7 C (98.1 F) 01/04/2025 2:39 PM EDT Respiratory Rate 16 01/04/2025 2:39 PM EDT Oxygen Saturation 95% 01/04/2025 2:39 PM EDT Inhaled Oxygen Concentration - - Weight 90.4 kg (199 lb 3.2 oz) 01/04/2025 2:39 P M EDT Height 164.5 cm (5' 4.76 ) 01/04/2025 2:39 PM ED T Body Mass Index 33.39 01/04/2025 2:39 PM EDT Plan of Treatment Upcoming Encounters Date Type Department Care Team (Late st Contact Info) Description 08/27/2025 11:40 AM EST Office Visit [facility] [address] [facility] [address], [address] [place] [address] Molina Rubio MD, [place] [address] [facility] [place] [address] [email or web address] Health Maintenance Due Date Last Done Comments COLOGUARD 2001 FIT TEST 2001 FOBT 2001 SIGMOIDOSCOPY 2001 VIRTUAL COLONOSCOPY 2001 INFLUENZA VACCINE (#1) 2025 , 08/10/2023, 07/08/2022, Additional history exists DEPRESSION SCREENING 05/05/2025 05/05/2024 COVID-19 VACCINE ( season) 2025 07/20/2022, 09/04/2021, 02/05/2021, Additional history exists BLOOD PRESSURE 07/06/2025 01/04/2025 CREATININE LEVEL 01/04/2026 01/04/2025, , 05/10/2024, Additional history exists POTASSIUM LEVEL 01/04/2026 01/04/2025, 04/27, 12/22/2023, Additional history exists SCREENING FOR DIABETES 01/05/2028 , 01/04/2025, 12/22/2023, Additional history exists LIPID PANEL 12/21/2028 12/22/2023, 11/26, 12/22/2023, Additional history exists RSV VACCINE (1 - 1-dose 75+ series) 2031 Adult Td,Tdap Booster 01/15/2032 01/14/2022 COLONOSCOPY 03/18/2032 03/18/2022, 11/02/2016 COLORECTAL CANCER SCREENING 03/18/2032 HEPATITIS C SCREENING Completed 06/19/2021, 021 PNEUMOCOCCAL VACCINES (50+ years) Completed 10/26/2022, 10/23/2021 ZOSTER VACCINES Completed 03/25/2023, 10/02/2022 SMOKING STATUS SCREENING (Once After 26 Yrs) Completed 01/04/2025 HEPATITIS A VACCINES Aged Out No long er eligible based on patient's age to complete this topic HIB VACCINES Aged Out No longer eligi ble based on patient's age to complete this topic MENINGOCOCCAL VACCINES (ACWY) Aged Out No longer eligible based on patient's age to complete this topic MENINGOCOCCAL VACCINES (B) Aged Out N o longer eligible based on patient's age to complete this topic Medical Devices Not on file Procedures Procedure Name Priority Date/Time Associated Diagnosis Comments COMPREHENSIVE METABOLIC PANEL Routine 01/04/2025 3:38 PM EDT Benign essential hypertension Dementia, unspecified dementia severity, unspecified dementia type, unspecified whether behavioral, psychotic, or mood disturbance or anxiety OUTSIDE HDL Routine 12/22/2023 OUTSIDE GLUCOSE FASTING Routine 12/22/2023 COLONOSCOPY FOR RESULT ENTRY ONLY Routine 03/18/2022 HEPATITIS C ANTIBODY, QUALITATIVE Routine 06/19/2021 9:26 AM EDT Need for hepatitis C screening test from Last 3 Months or Most Recently Relevant to Health Maintenance Results * (ABNORMAL) Comprehensive metabolic panel (01/04/2025 3:38 PM EDT) SODIUM 132(L) 133 - 146 mmol/L [facility] POTASSIUM 4.4 3.3 - 5.1 mmol/L [facility] CHLORIDE 99 96 - 108 mmol/L [facility] CO2 23 21 - 35 mmol/L [facility] BUN 14 6 - 19 mg/dL [facility] CREATININE 1.00 0.5 - 1.5 mg/dL [facility] GLUCOSE 100(H) 70 - 99 mg/dL [facility] ALBUMIN 4.1 3.9 - 4.8 g/dL [facility] TOTAL PROTEIN 6.9 6.5 - 8.0 g/dL [facility] CALCIUM 9.3 8.4 - 10.3 mg/dL [facility] ALKALINE PHOSPHATASE 71 39 - 117 U/L [facility] TOTAL BILIRUBIN 0.7 0.0 - 1.2 mg/dL [facility] AST 18 0 - 37 U/L [facility] ALT 15 0 - 40 U/L [facility] GLOBULIN 2.8 1 - 4.8 g/dL [facility] EGFR 82 >59 mL/min/1.7 3m2 [facility] Comment:Estimated glomerular filtration rate calculated using the CKD-EPI refit equation. ANION GAP 14 10 - 20 mmol/L [facility] Blood 01/04/2025 3:38 PM EDT 01/04/2025 3:45 PM EDT Result [facility] Ashkan Peñaloza MD LAB BLOOD ORDERABLES Final Re sult [address] [address] * Outside Glucose,Fasting (12/22/2023) Glucose, fasting - External 91 65 - 99 mg/dL Result [facility] Historical Provider LAB BLOOD ORDERABLES Gissell l Result * Outside HDL (12/22/2023) Pathologist [facility] HDL - External 52 40 - 80 mg/dL Result [facility] Historical Provider LAB BLOOD ORDERABLES Gissell l Result * HM COLONOSCOPY FOR RESULT ENTRY ONLY (03/18/2022) Historical Provider HEALTH MAINTENANCE Edited Result - Final * Hepatitis C antibody, qualitative (06/19/2021 9:26 AM EDT) HCV NON-REACTIV E NON-REACTI VE [facility] Blood 06/19/2021 9:26 AM EDT 06/19/2021 9:28 AM EDT Ashkan Peñaloza MD LAB BLOOD ORDERABLES Final Re sult [address] [id number] from Last 3 Months or Most Recently Relevant to Health Maintenance Insurance [employer] MEDEX SUPPLEMENT MEDICARE PART A & B [employer] MED[employer] SUPPLEMENT MEDICARE PART A & B [facility] MEDEX SUPPLEMENT MEDICARE PART A & B [employer] MEDEX SUPPLEMENT MEDICARE PART A & B [address] [address] [employer] MEDEX SUPPLEMENT MEDICARE PART A & B Member Subscriber Plan / Payer ( fective 2021-) Name:John Cosby Member ID:[id number] Relation to Subscriber:Self Name:John Cosby Subscriber ID:[id number] Payer ID:[id number] Group ID:Not on file Type:Medicare Address: [facility] [employer] [facility] [address] [place] [address] [employer] MEDEX SUPPLEMENT MEDICARE PART A & B [facility] MEDEX SUPPLEMENT MEDICARE PART A & B [facility] MEDEX SUPPLEMENT MEDICARE PART A & B [facility] MEDEX SUPPLEMENT MEDICARE PART A & B Care Teams Forge Helper Relationship Specialty Start Date End Date Ashkan Peñaloza MD [address] [place] [id number] [email or web address] PCP - General Internal Medicine 05/08/19 Ferdinand Guerra MD [address] [place] [address], [address] [place] [address] [email or web address] Neurology 10/30/19 Ashkan Peñaloza MD [address] [place] [id number] [email or web address] Insurance Assigned Provider 01/01/24 Additional Source Comments The information contained in this document represents components of the legal health record. It is not the complete legal health record.[facility]
[2025-07-26 16:51] VITALS: BP 138/66; PULSE 75
== END 2025-07-26 14:52 | disposition home or self-care (01) ==
LOC: HO.HMCSH 13:48
PROVIDERS: PCP Physician Assistant Medical; Visit Provider Physician Assistant Medical
DX: Z00.00 Encounter for general adult medical examination without abnormal findings (principal); F03.90 Unspecified dementia, unspecified severity, without behavioral disturbance, psychotic disturbance, mood disturbance, and anxiety; I10 Essential (primary) hypertension; F32.A Depression, unspecified; R26.9 Unspecified abnormalities of gait and mobility; E87.0 Hyperosmolality and hypernatremia

== ENCOUNTER → 2025-07-26 13:48 | Outpatient (BNVA) | payer MEDICARE, SELFPAY | PROVIDERS: PCP Physician Assistant Medical; Visit Provider Physician Assistant Medical | DX: F03.90 Unspecified dementia, unspecified severity, without behavioral disturbance, psychotic disturbance, mood disturbance, and anxiety (principal); I10 Essential (primary) hypertension; F32.A Depression, unspecified; R26.9 Unspecified abnormalities of gait and mobility; E87.0 Hyperosmolality and hypernatremia; Z13.31 Encounter for screening for depression; Z13.39 Encounter for screening examination for other mental health and behavioral disorders | CPT/HCPCS: 96127; 99202 ==